=== PATIENT | female | born 2000 | race Two or more races ===

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

== ENCOUNTER → 2019-11-09 | Outpatient (CLI) | payer OTHER | END | disposition home or self-care (01) | LOC: PRENATAL 12:04 | DX: O28.3 Abnormal ultrasonic finding on antenatal screening of mother (principal); O36.80X1 Pregnancy with inconclusive fetal viability, fetus 1; O98.911 Unspecified maternal infectious and parasitic disease complicating pregnancy, first trimester ==

== ENCOUNTER → 2019-11-23 09:59 | Outpatient (CLI) | payer OTHER | END | disposition home or self-care (01) | LOC: LAB 09:59 | DX: O35.0XX0 Maternal care for (suspected) central nervous system malformation in fetus, not applicable or unspecified (principal) ==

== ENCOUNTER → 2019-11-23 | Outpatient (CLI) | payer OTHER | END | disposition home or self-care (01) | LOC: PRENATAL 08:00 | DX: O76 Abnormality in fetal heart rate and rhythm complicating labor and delivery (principal); O35.0XX1 Maternal care for (suspected) central nervous system malformation in fetus, fetus 1 ==

== ENCOUNTER 2019-12-18 06:34 | Inpatient (IN) | payer OTHER ==
[~2019-12-18] VITALS: Ht 165.1 cm; Wt 89.8 kg
== END 2019-12-19 11:04 | disposition home or self-care (01) | DRG 833 ==
LOC: LDR 06:34 → OB/GYN 16:38
PROVIDERS: ADMIT Specialist
PROC: 3E033VJ Introduction of Other Hormone into Peripheral Vein, Percutaneous Approach (ICD-10-PCS; principal; 2019-12-18 14:00)
PROC: 10A07Z6 Abortion of Products of Conception, Vacuum, Via Natural or Artificial Opening (ICD-10-PCS; principal; 2019-12-18 14:00)
DX: O36.4XX0 Maternal care for intrauterine death, not applicable or unspecified (principal); Z3A.15 15 weeks gestation of pregnancy; Q96.9 Turner's syndrome, unspecified